=== PATIENT | female | born 1970 | race Caucasian/White ===

== ENCOUNTER 2019-07-25 08:36 | Inpatient (IN) ==
[2019-07-25] MEDS ORDERED: *HR* Promethazine 25 MG/ML VIAL IVP PRN (08:52)
[2019-07-25] MEDS ORDERED: Acetaminophen IV 1,000 MG/100 ML INFUS..BTL IVPB ONE (08:52)
[2019-07-25] MEDS ORDERED: *HR* OxyCODONE Immed Rel 5 MG TABLET PO PRN ×2 (08:52→19:12)
[2019-07-25] MEDS ORDERED: Gabapentin 300 MG CAPSULE PO ONE (08:52)
[2019-07-25] MEDS ORDERED: *HR* Labetalol 20 MG/4 ML SYRINGE IVP PRN (08:52)
[2019-07-25] MEDS ORDERED: Ondansetron 4 MG/2 ML VIAL IVP ONE (08:52)
[2019-07-25] MEDS ORDERED: Naloxone 0.4 MG/ML INJ IVP PRN ×2 (08:52→12:10)
[2019-07-25] MEDS ORDERED: *HR* LORazepam 2 MG/ML VIAL IVP PRN (08:52)
[2019-07-25] MEDS ORDERED: cefOXitin 2,000 MG in Water for inj. (sterile) 20 ML IVP ONE (09:06)
[2019-07-25] MEDS ORDERED: Ketorolac 15 MG/ML VIAL IVP ONE (09:06)
[2019-07-25] MEDS ORDERED: Scopolamine Patch 1.5 MG PATCH.TD72 TD ONE (09:08)
[2019-07-25] MEDS ORDERED: Ringers Solution, Lactated 1,000 ML IVC SCH (09:15)
[2019-07-25] MEDS ORDERED: Lidocaine -MPF 2% 2 ML VIAL ONE (09:51)
[2019-07-25] MEDS ORDERED: *HR* Rocuronium Bromide 50 MG/5 ML VIAL ONE (09:51)
[2019-07-25] MEDS ORDERED: Lidocaine HCL 4 ML Topical Solution (Laryng-O-Jet Kit Sterile Pak) TP ONE (09:51)
[2019-07-25] MEDS ORDERED: *HR* FentaNYL (PF) 100 MCG/2 ML VIAL ONE (09:54)
[2019-07-25] MEDS ORDERED: *HR* Propofol 200 MG/20 ML VIAL IVP ONE (09:56)
[2019-07-25] MEDS ORDERED: *HR* Midazolam HCl 2 MG/2 ML VIAL ONE (09:58)
[2019-07-25] MEDS ORDERED: *HR* HYDROMORPHONE 2 MG/ML VIAL ONE (11:25)
[2019-07-25] MEDS ORDERED: Ondansetron 4 MG/2 ML VIAL ONE (11:32)
[2019-07-25] MEDS ORDERED: Dexamethasone 4 MG/ML VIAL ONE (11:32)
[2019-07-25] MEDS ORDERED: Neostigmine Methylsulfate 3 MG/3 ML SYRINGE ONE (11:59)
[2019-07-25] MEDS ORDERED: Ondansetron 4 MG/2 ML VIAL IVP PRN (12:10)
[2019-07-25] MEDS: *HR* HYDROmorphone (PF) 1 MG/ML SYRINGE IVP PRN ×6 (12:31→13:04)
[2019-07-25] MEDS: *HR* OxyCODONE/APAP 5/325 TABLET PO PRN ×2 (14:30→18:56)
[2019-07-25] MEDS: ceFAZolin 1,000 MG in Water for inj. (sterile) 10 ML IVP SCH (17:28)
[2019-07-25] MEDS: Ketorolac 30 MG/ML VIAL IVP PRN (19:43)
[2019-07-25] MEDS: Ringers Solution, Lactated 1,000 ML IVC SCH ×2 (20:46→21:33)
[2019-07-26] MEDS: Ketorolac 30 MG/ML VIAL IVP PRN (01:30)
[2019-07-26] MEDS: ceFAZolin 1,000 MG in Water for inj. (sterile) 10 ML IVP SCH ×2 (01:31→07:47)
[2019-07-26 05:42] LABS: Hematocrit 32.9 % (35.3-44.9); Hemoglobin 11.2 g/dL (11.5-15.4); Immature Granulocytes % 0.3 % (0-4); Lymphocytes % 14.9 %; Mean Corpuscular Hemoglobin 31.2 pg (28.0-33.3); Mean Corpuscular Volume 91.6 fL (83.0-100.0); Mean Platelet Volume 10.1 fL (9.4-12.4); Monocytes % 8.2 %; Platelet Count 242 K/mcL (140-400); Red Blood Count 3.59 M/mcL (3.82-4.97); Segmented Neutrophils % 76.3 %; White Blood Count 11.9 K/mcL (4.3-11.1)
[2019-07-26 05:43] LABS: Basophils % 0.3 %; Lymphocytes # 1.8 K/mcL (0.6-4.6); Neutrophils # 9.1 K/mcL (1.6-8.9)
[2019-07-26 06:03] LABS: eGFR For African Americans > 60 (> 60); eGFR For Non-African Americans > 60 (> 60)
[2019-07-26] MEDS: *HR* OxyCODONE/APAP 5/325 TABLET PO PRN (06:13)
[2019-07-26] MEDS ORDERED: Ketorolac 30 MG/ML VIAL IVP SCH (08:00)
[2019-07-26 08:46] VITALS: BP 119/81
== END 2019-07-26 09:55 | disposition home or self-care (01) | DRG 743 ==
LOC: SAMDAY 08:36 → 1NENUPED 14:20
PROVIDERS: ADMIT Obstetrics & Gynecology; ATTEND Obstetrics & Gynecology